=== PATIENT | female | born 1990 | race Caucasian/White ===

== ENCOUNTER 2017-11-05 08:56 | Emergency (ER) | payer OTHER ==
[~2017-11-05] VITALS: Ht 167.6 cm; Wt 56.2 kg
[2017-11-05] MEDS ORDERED: KETO10TA2 PO (10:49)
[2017-11-05] MEDS ORDERED: ACYCLOVIR800 MG PO (10:49)
== END 2017-11-05 10:54 | disposition home or self-care (01) ==
LOC: ER 08:56
DX: B02.9 Zoster without complications (principal)